=== PATIENT | male | born 1950 | race Two or more races ===

== ENCOUNTER 2019-12-02 11:10 | Emergency (ER) | payer OTHER ==
[~2019-12-02] VITALS: Ht 182.9 cm; Wt 77.0 kg
[2019-12-02 11:13] VITALS: BP 153/76
== END 2019-12-02 11:58 | disposition home or self-care (01) ==
LOC: ER 11:10
DX: L03.213 Periorbital cellulitis (principal)
CPT/HCPCS: 99281; 99283